=== PATIENT | male | born 1935 | race Caucasian/White ===

== ENCOUNTER → 2023-12-21 09:52 | Outpatient (REF) | payer OTHER, SELFPAY | LOC: RAD 09:52 | PROVIDERS: ATTENDING PHYSICIAN Family Medicine | DX: M79.662 Pain in left lower leg (principal); I82.512 Chronic embolism and thrombosis of left femoral vein | CPT/HCPCS: 93971 ==

== ENCOUNTER 2024-01-15 08:05 | Emergency (ER) | payer OTHER, SELFPAY ==
[2024-01-15 08:18] VITALS: BP 156/94
[2024-01-15 08:28] VITALS: BMI 27.3
--- NOTE | 2024-01-15 10:09 | ED.GENMED ---
History of Present Illness
General
Chief Complaint: DVT/Possible Blood Clot
Source: patient
Exam Limitations: none
Time Seen by Provider: 01/15/24 09:08
Nursing documentation reviewed up to this point in time: agreed with
History of Present Illness
History of Present Illness:
Patient is an 88-year-old male who presents to the ER complaining of left knee pain. 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 He reports a week ago he noticed some mild left lateral knee pain after
standing on his knee at a wedding. Last night however when walking down steps he complained of pain to the left knee and was barely able to walk. He also had pain this morning but presently feels that it is better. He denied any calf pain at the
time pain was localized to left lateral knee. He does report he did have an ultrasound several weeks ago on December 20 because of mild calf pain.
I reviewed this report it does show nonocclusive thrombus in the left popliteal vein probably nonacute and does not appear to be increased compared to the previous ultrasound from December 2021. Patient has mild chronic appearing thrombus in the mid
to distal segments of the left femoral vein.
Past History
Past History
ED Past Medical History: Cancer, HTN and Hypercholesterolemia
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
Social History
Tobacco: Non-smoker
Alcohol: None
Drug: None
Personal:
Living: with family
Family History
Family History: Other
Phy Exam
General Physical Exam
General Presentation: no apparent distress
General age: appears stated age
General Skin: warm and dry
General Mental: alert
General Hydration: appears well hydrated
Neurological Exam
Neurological Exam: alert and oriented x3
Musculoskeletal Exam
Musculoskeletal Exam: other (lle with strong pulses full ROM to left knee no obvious swelling nml weight bearing no ligament laxity no calf swelling/tenderness on exam no erythema )
Skin Exam
Skin Exam: normal color and warm/dry
Psychiatric Exam
Psychiatric Exam: normal mood/affect
Course
Orders/Labs/Results
Orders:
Orders
01/15/24 09:25
Knee, Left 4 or More Views [CR Knee - Left 4 Or More View*] Urgent
Comment:
Reason For Exam: left knee pain
Venous Doppler Lwr Ext Left [US Periph Venous LOWER Ext LT] Urgent
Comment:
Reason For Exam: pain
Vital Signs
Initial and Last Documented VS:
Initial Vital Signs
Temp Pulse Resp BP Pulse Ox
98.1 F 69 20 156/94 100
01/15/24 08:18 01/15/24 08:18 01/15/24 08:18 01/15/24 08:18 01/15/24 08:18
Last Documented Vital Signs
Temp Pulse Resp BP Pulse Ox
98.1 F 69 20 156/94 100
01/15/24 08:18 01/15/24 08:18 01/15/24 08:18 01/15/24 08:18 01/15/24 08:18
MDM/Problems Addressed
Differential Diagnosis Includes:
Not limited to knee sprain strain, less likely DVT
MDM/Problems Addressed:
Patient is an 88-year-old male who presents to the ER for evaluation. Patient complained of left knee pain and leg pain while walking downstairs yesterday and prior to arrival. He presently presents to the ER however no acute distress reporting
pain resolved. 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 I did review his ultrasound from 2020 which does show nonocclusive thrombus in the mid to distal femoral popliteal and posterior tibial vein. Patient has no
obvious swelling on exam he is in no acute distress no shortness of breath. Ultrasound today shows slight improvement of the known DVT of the left lower extremity nonocclusive thrombus in the left popliteal vein. Patient had send 2 weeks ago for
some leg pain. This nonocclusive thrombus is not new and actually slight improved from prior ultrasound. I did review this radiology as well as hematology does not require anticoagulation. Patient ambulating on his leg and no acute distress
symptoms have resolved stable for discharge home.
*Critical Care Note
Total Time (30-74mins, 75-104mins- exclusive of procedures): Not Applicable
Data Reviewed
Review of Other/Old Records Reveals: Other (Previous ultrasound from December 21, 2023)
ED Attending Note
-
Portions of this chart may have been created with voice recognition software.� Occasional wrong word or��sound alike� substitutions may have occurred due to the inherent limitations of voice recognition software.
Discharge Plan
Departure
Patient Disposition: Home (Routine Discharge)
Date of Disposition: 01/15/24
Time of Disposition: 11:24
Patient with high blood pressure during this ER visit?: Yes
Condition: Fair
Covid-19: Not Applicable
Discharge Problem:
knee pain
Instructions: Knee Pain ED
Prescriptions:
No Action
aspirin 81 MG tablet,delayed release (DR/EC)
81 mg PO DAILY
ascorbic acid (vitamin C) [Vitamin C] 500 MG tablet
500 mg PO DAILY
amlodipine-benazepril 1 CAPSULE capsule
1 cap PO DAILY
jhzelkde-hrk-RL-lycopen-lutein [Centrum Silver] 1 EACH tablet
1 ea PO DAILY
fish oil-dha-epa 1 EACH capsule
1 ea PO DAILY
vitamin E (dl, acetate) 400 UNITS capsule
400 units PO DAILY
tqrivgdimtr-B5-Zytlrddfp serr [Osteo Bi-Flex (5-Loxin)] 1 EACH tablet
1 ea PO DAILY
docusate sodium [Colace] 100 mg capsule
100 mg PO DAILY Qty: 30 0RF
Referrals:
Carlie Jimenez I., [Active] -
Fredy Dowell MD [Family Provider] -
Activity Restrictions/Additional Instructions:
As discussed follow-up with orthopedics if needed. Your ultrasound does show that the nonocclusive thrombus in the left popliteal vein is slightly decreased
Return if any worsening of symptoms of increased lower leg pain swelling or any further concerns.
Interventions
Interventions:
*Risk Screen - Suicide Last Done: 01/15/24 08:28
*General Assessment Last Done: 01/15/24 11:33
*Neglect/Abuse Screening Last Done: 01/15/24 08:28
ED- Fall Risk Assessment Last Done: 01/15/24 08:28
*ED COVID-19 Vaccine History Last Done: 01/15/24 08:28
*Nursing Disposition Last Done: 01/15/24 11:33
ED- Cardiac Assessment Last Done: 01/15/24 08:28
ED- Pulmonary Assessment Last Done: 01/15/24 08:28
ED-Skin Assessment Last Done: 01/15/24 08:28
Discharge Date and Time
Discharge Date/Time: 01/15/24 11:30
Print Language: AMHARIC
== END 2024-01-15 11:30 | disposition home or self-care (01) ==
LOC: EMR 08:05
PROVIDERS: EMERGENCY PHYSICIAN Student in an Organized Health Care Education/Training Program; FAMILY PHYSICIAN Family Medicine
DX: M25.562 Pain in left knee (principal); I82.432 Acute embolism and thrombosis of left popliteal vein; I82.412 Acute embolism and thrombosis of left femoral vein; R26.2 Difficulty in walking, not elsewhere classified; I10 Essential (primary) hypertension; E78.00 Pure hypercholesterolemia, unspecified; Z85.528 Personal history of other malignant neoplasm of kidney
CPT/HCPCS: 99284; 73564; 93971

== ENCOUNTER → 2024-04-17 13:57 | Outpatient (REF) | payer OTHER, SELFPAY | LOC: RAD 13:57 | PROVIDERS: ATTENDING PHYSICIAN Physician Assistant; FAMILY PHYSICIAN Family Medicine | DX: M79.605 Pain in left leg (principal) | CPT/HCPCS: 93971 ==